=== PATIENT | male | born 1970 | race Caucasian/White ===

== ENCOUNTER 2016-07-10 18:31 | Emergency (ER) | payer OTHER ==
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
--- NOTE | 2016-07-10 19:30 | ED MED RECONCILIATION SUMMARY ---
Patient: ADRIA MACIAS Medication Reconciliation Report [facility] VisitID: [id number] [address] [place] [address] 45y, M Registration Date/Time: 07/10/2016 Weight: 99.7 kg Height/Length: 72 in. BMI: 29.8 ALLERGIES: No Known Drug Allergy The patient's Home Medications are listed below: NONE. The source(s) of the original Home Medication information: Not obtained. The following Medications were given to the patient in the Emergency Department: None. The following Medications were prescribed to the patient: None.
--- NOTE | 2016-07-10 19:30 | ED MAR SUMMARY ---
..... Medication Administration Record [facility] [address] [place], [place] [id number] Patient: ADRIA MACIAS Visit ID: [id number] 45y, M Weight: 99.7 kg Height/Length: 72 in BMI: 29.8 ALLERGIES: No Known Drug Allergy
--- NOTE | 2016-07-10 19:30 | ED MAR SUMMARY ---
..... Medication Administration Record [facility] [address] [place], [place] [id number] Patient: ADRIA MACIAS Visit ID: [id number] 45y, M Weight: 99.7 kg Height/Length: 72 in BMI: 29.8 ALLERGIES: No Known Drug Allergy
--- NOTE | 2016-07-10 19:30 | ED MED RECONCILIATION SUMMARY ---
Patient: ADRIA MACIAS Medication Reconciliation Report [facility] VisitID: [id number] [address] [place] [address] 45y, M Registration Date/Time: 07/10/2016 Weight: 99.7 kg Height/Length: 72 in. BMI: 29.8 ALLERGIES: No Known Drug Allergy The patient's Home Medications are listed below: NONE. The source(s) of the original Home Medication information: Not obtained. The following Medications were given to the patient in the Emergency Department: None. The following Medications were prescribed to the patient: None.
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
== END 2016-07-10 19:24 | disposition home or self-care (01) ==
LOC: ED SRH 18:31
DX: Z53.21 Procedure and treatment not carried out due to patient leaving prior to being seen by health care provider (principal)